=== PATIENT | male | born 1945 | race Caucasian/White ===

== ENCOUNTER 2016-07-12 11:46 | Emergency (ER) | payer OTHER ==
[2016-07-12 11:58] VITALS: BP 123/76; PULSE 74; RESP 16; TEMP 97.7; O2SAT 92
[2016-07-12] MEDS ORDERED: RANITIDINE 50 MG/2 ML VIAL IVP ONE (12:15)
[2016-07-12] MEDS ORDERED: methylPREDNISolone SOD SUCC 125 MG/2 ML VIAL IVP ONE (12:15)
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
[2016-07-12] MEDS ORDERED: ACETAMINOPHEN 500 MG TAB ONE (13:28)
[2016-07-12] MEDS ORDERED: ACETAMINOPHEN 160 MG/5 ML UDCUP PO ONE (13:35)
== END 2016-07-12 13:40 | disposition home or self-care (01) ==
DX: T78.40XA Allergy, unspecified, initial encounter (principal)
CPT/HCPCS: 96374; 96375; 99284; J1200; J2780

== ENCOUNTER 2017-12-20 16:33 | Emergency (ER) | payer OTHER ==
[2017-12-20] MEDS ORDERED: NS 1,000 ML IV ONE (16:37)
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
[2017-12-20 18:49] VITALS: BP 148/72
== END 2017-12-20 18:29 | disposition home or self-care (01) ==
LOC: EDUNIT#
PROC: 0HQ1XZZ Repair Face Skin, External Approach (ICD-10-PCS; principal; 2017-12-20)
DX: S09.93XA Unspecified injury of face, initial encounter (principal); S00.81XA Abrasion of other part of head, initial encounter; V13.4XXA Pedal cycle driver injured in collision with car, pick-up truck or van in traffic accident, initial encounter; Y92.410 Unspecified street and highway as the place of occurrence of the external cause; Y93.9 Activity, unspecified; Y99.9 Unspecified external cause status

== ENCOUNTER 2018-02-09 13:32 | Emergency (ER) | payer OTHER ==
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
[2018-02-09 14:57] VITALS: BP 146/87
== END 2018-02-09 14:57 | disposition home or self-care (01) ==
DX: R10.11 Right upper quadrant pain (principal)

== ENCOUNTER → 2018-02-13 | Outpatient (CLI) | payer OTHER | LOC: FIMAGING 12:42 | PROVIDERS: ATTEND Internal Medicine | DX: S06.4X0A Epidural hemorrhage without loss of consciousness, initial encounter (principal); Z87.820 Personal history of traumatic brain injury ==

== ENCOUNTER → 2018-04-03 | Outpatient (CLI) | payer OTHER | LOC: FIMAGING 10:07 | PROVIDERS: ATTEND Internal Medicine | DX: R10.33 Periumbilical pain (principal) ==

== ENCOUNTER → 2018-04-10 | Outpatient (CLI) | payer OTHER ==
[~2018-04-10] MED LIST: IOPAMIDOL (ISOVUE-300) 100 ML BTL ONE
== END ==
LOC: FIMAGING 07:36
PROVIDERS: ATTEND Internal Medicine
DX: R10.33 Periumbilical pain (principal)
CPT/HCPCS: 74160; Q9967; 82565-PO